=== PATIENT | male | born 1975 | race Caucasian/White ===

== ENCOUNTER 2021-05-21 02:49 | Emergency (ER) | payer OTHER, SELFPAY ==
--- NOTE | 2021-05-21 02:46 | ECG_ITS ---
APPROVED REPORT Exam: Resting ECG HR:81 bpm ECG Measurements Heart Rate 81 AXES MO 144 P 66 QRSd 94 QRS 34 QT 382 T 33 QTc 443 Conclusion Normal sinus rhythm Normal ECG Electronically signed by : Raghu Clemente, 05/21/2021 18:50:21
[2021-05-21 02:49] VITALS: BP 138/88; PULSE 82; RESP 16; TEMP 36.7; O2SAT 98; BMI 28.1
--- NOTE | 2021-05-21 02:57 | XR_ITS ---
PROCEDURE INFORMATION: Exam: XR Chest Exam date and time: 05/21/2021 2:57 AM Age: 45 years old Clinical indication: Sternal or substernal pain; Patient HX: Mid chest and epigastric pain; Additional info: Cp TECHNIQUE: Imaging protocol: XR of the chest. Views: 2 views. COMPARISON: No relevant prior studies available. FINDINGS: Lungs: No acute findings or consolidation. Pleural spaces: No pleural effusion. No pneumothorax. Heart/Mediastinum: No acute findings or cardiomegaly. Bones/joints: No acute findings. IMPRESSION: No acute cardiopulmonary findings.
[2021-05-21 03:03] VITALS: BP 126/70; PULSE 90; O2SAT 99
--- NOTE | 2021-05-21 03:06 | PC.NURSE ---
pt vomiting at this time
[2021-05-21 03:08] LABS: Blood Urea Nitrogen 14 mg/dl (9-20); Carbon Dioxide 26 mmol/L (22.0-30.0); Chloride 106 mmol/L (98-107); Creatinine Clearance Estimated 103 mL/min (50-200); Estimated Glomerular Filt Rate 73 ml/min (>60); GFR (African American) 88 ML/MIN (>60); Glucose 130 mg/dl (74-100); Sodium 143 mmol/L (136-145)
--- NOTE | 2021-05-21 03:15 | CT_ITS ---
PROCEDURE INFORMATION: Exam: CT Abdomen And Pelvis With Contrast Exam date and time: 05/21/2021 3:15 AM Age: 45 years old Clinical indication: Abdominal tenderness and vomiting; Patient HX: Epigastric pain TECHNIQUE: Imaging protocol: Computed tomography of the abdomen and pelvis with contrast. Radiation optimization: All CT scans at this facility use at least one of these dose optimization techniques: automated exposure control; mA and/or kV adjustment per patient size (includes targeted exams where dose is matched to clinical indication); or iterative reconstruction. Contrast material: ISOVUE; Contrast volume: 75 ml; Contrast route: IV; COMPARISON: CR XR CHEST 2V 05/21/2021 3:45 AM FINDINGS: Lungs: Calcified granulomata in the right lower lobe. Liver: No acute findings. No mass. Gallbladder and bile ducts: Layering hyperattenuating material in the gallbladder lumen suggestive of sludge or multiple partially calcified gallstones. No intra or extrahepatic biliary ductal dilation. Pancreas: No acute findings, focal abnormality or ductal dilation. Spleen: No splenomegaly or focal abnormality. Adrenal glands: Normal. No mass. Kidneys and ureters: No hydronephrosis. Stomach and bowel: No obstruction. No mucosal thickening. Appendix: No evidence of appendicitis. Intraperitoneal space: No free air. No free fluid. Vasculature: No abdominal aortic aneurysm. Lymph nodes: No pathologically enlarged lymph nodes. Urinary bladder: Unremarkable as visualized. Reproductive: Unremarkable as visualized. Bones/joints: No acute fracture. Soft tissues: Uncomplicated fat containing left inguinal hernia. IMPRESSION: 1. Gallbladder sludge versus multiple partially calcified gallstones without intra or extrahepatic biliary ductal dilation. Follow-up as clinically indicated. 2. Other chronic changes as described.
--- NOTE | 2021-05-21 03:18 | HMH.EDGENADL ---
ED Disposition Clinical Impression: Abdominal pain Qualifiers: Abdominal location: epigastric Qualified Code(s): R10.13 - Epigastric pain Disposition: Home, Self-Care Condition on Discharge: Good Instructions: DI for General Gallbladder Conditions Additional Instructions: see pcp for follow up and gb eval Referrals: Provider,Des, [Primary Care Provider] - Ulises Abraham MD [Staff Physician] - - Critical Care Critical Care Time: No Attestation: On 05/21/21, the high probability of a clinically significant, sudden or life threatening deterioration of the following system(s) required my full and direct attention, intervention and personal management. The time I documented below is in addition to time spent performing reported procedures but includes the following listed in this critical care notation. Medical Decision Making - Medical Records Medical records reviewed: Yes: I reviewed the patient's medical records. - [place] Inquiry Pt receiving controlled substance: No Vital Signs: 05/21/21 02:49 05/21/21 03:03 05/21/21 03:27 Temperature 98.1 F Temperature Source Oral Pulse Rate 90 81 Pulse Rate [Left Radial] 82 Respiratory Rate 16 Blood Pressure 126/70 139/94 H Blood Pressure [Right Arm] 138/88 Blood Pressure Mean [Right Arm] 104 Blood Pressure Source Automatic Cuff Automatic Cuff Blood Pressure Source [Right Arm] Automatic Cuff Blood Pressure Position Sitting Sitting Blood Pressure Position [Right Arm] Sitting 02 Sat by Pulse Oximetry 98 99 96 Oxygen Delivery Method Room Air Room Air - Lab Data Lab results reviewed: Yes: I reviewed the patient's lab results. Lab Results 05/21/21 02:50: WBC 14.4 H, RBC 5.45, Hgb 16.3, Hct 46.4, MCV 85.1, MCH 29.9, MCHC 35.1, RDW 13.2, Plt Count 225, MPV 9.1, Neut % (Auto) 73.4, Lymph % (Auto) 20.5, Haskell % (Auto) 4.3, Eos % (Auto) 1.1, Baso % (Auto) 0.7, Neut # (Auto) 10.6 H, Lymph # (Auto) 3.0, Haskell # (Auto) 0.6, Eos # (Auto) 0.2, Baso # (Auto) 0.1 05/21/21 02:50: Sodium 143, Potassium 4.0, Chloride 106, Carbon Dioxide 26, Anion Gap 15.0, BUN 14, Creatinine 1.10, Estimated Creat Clear 103, Estimated GFR 73, Est GFR ( Amer) 88, Glucose 130 H, Calcium 9.0, Troponin I < 0.01 05/21/21 02:50: ESR 8 05/21/21 02:50: C-Reactive Protein 2.6, Procalcitonin 0.046 05/21/21 02:50: Amylase 50, Lipase 185 Result diagrams: 05/21/21 02:50 05/21/21 02:50 Orders (Tests/Meds): ED MEDICATIONS Generic Name Dose Route Start Last Admin Trade Name Freq PRN Reason Stop Dose Admin Sodium Chloride 1,000 mls @ 999 mls/hr 05/21/21 03:15 05/21/21 03:16 Sod Chlor 0.9% 1000ml Bag IV 05/21/21 04:15 999 mls/hr .Q1H1M ARABELLA Administration Sodium Chloride 8 ml 05/21/21 03:10 Sodium Chloride 0.9% 10ml Vial IV 06/20/21 03:09 NEEDED PRN dilute pepcid Discontinued Medications Generic Name Dose Route Start Last Admin Trade Name Freq PRN Reason Stop Dose Admin Belladonna Alkaloids 60 ml 05/21/21 03:10 05/21/21 03:17 Gi Cocktail 60ml Udc PO 05/21/21 03:11 60 ml ONCE ONE Administration Famotidine 20 mg 05/21/21 03:10 05/21/21 03:16 Famotidine 20mg/2ml Vial IV 05/21/21 03:11 20 mg ONCE ONE Administration Iopamidol 75 ml 05/21/21 04:13 05/21/21 04:15 Iopamidol-370 (76%);100ml Bottle IV 05/21/21 04:14 75 ml ONCE ONE Administration Ketorolac Tromethamine 30 mg 05/21/21 03:15 05/21/21 03:18 Ketorolac 30mg/Ml Vial IV 05/21/21 03:16 30 mg ONCE ONE Administration Metoclopramide HCl 10 mg 05/21/21 03:10 05/21/21 03:16 Metoclopramide Hcl 10mg/2ml Vial IVP 05/21/21 03:11 10 mg ONCE ONE Administration Ondansetron HCl 4 mg 05/21/21 03:10 05/21/21 03:16 Ondansetron 4mg/2ml Vial IV 05/21/21 03:11 4 mg ONCE ONE Administration Promethazine HCl 12.5 mg 05/21/21 03:10 05/21/21 03:17 Promethazine Hcl 25mg/Ml 1ml Vial IV 05/21/21 03:11 12.5 mg ONCE ONE Administra
[2021-05-21 03:26] LABS: Troponin I < 0.01 ng/ml (0.00-0.034)
[2021-05-21 03:27] VITALS: BP 139/94; PULSE 81; O2SAT 96
[2021-05-21 03:36] LABS: Amylase 50 U/L (30-110); C-Reactive Protein 2.6 mg/L (0-4); Lipase 185 U/L (23-300)
[2021-05-21 03:37] LABS: Basophils # 0.1 K/mm3 (0-0.2); Basophils % 0.7 % (0.1-2.0); Eosinophils # 0.2 K/mm3 (0.0-0.4); Eosinophils % 1.1 % (0.1-12.0); Hematocrit 46.4 % (42.0-52.0); Hemoglobin 16.3 g/dL (14.1-18.0); Lymphocytes % 20.5 % (10-50); Mean Corpuscular HGB Conc 35.1 g/dL (31.8-35.4); Mean Corpuscular Hemoglobin 29.9 pg (27.0-31.2); Mean Corpuscular Volume 85.1 fl (80-94); Mean Platelet Volume 9.1 fl (7.4-10.4); Monocytes # 0.6 K/mm3 (0.1-1.0); Monocytes % 4.3 % (1.7-9.3); Neutrophils # 10.6 K/mm3 (1.8-7.8); Neutrophils % 73.4 % (37.0-80.0); Platelet Count 225 K/mm3 (142-424); Red Blood Count 5.45 M/mm3 (4.60-6.20); Red Cell Distribution Width 13.2 % (11.5-17.5); White Blood Count 14.4 K/mm3 (4.8-10.8)
[2021-05-21 03:49] LABS: Procalcitonin 0.046 ng/mL (0.0-2.0)
--- NOTE | 2021-05-21 03:52 | PC.NURSE ---
Pt to rad
[2021-05-21 03:57] LABS: Erythrocyte Sedimentation Rate 8 mm/hr (0-15)
[2021-05-21 06:51] VITALS: BP 139/94; PULSE 80; RESP 18; TEMP 36.7; O2SAT 96
== END 2021-05-21 06:52 | disposition home or self-care (01) ==
PROVIDERS: Emergency Provider Emergency Medicine; PCP Family Medicine
DX: R07.9 Chest pain, unspecified (principal); R10.13 Epigastric pain
CPT/HCPCS: 71046; 74177; 80048; 82150; 83690; 84145; 84484; 85025; 85651; 86140; 93005; 96365; 96375; 99282; 99283; J2405; Q9967

== ENCOUNTER → 2021-05-28 08:48 | Outpatient (CLI) | payer OTHER, SELFPAY ==
--- NOTE | 2021-05-28 08:50 | US_ITS ---
PROCEDURE: US GALLBLADDER CLINICAL INDICATION: gallstones COMPARISON: CT CT ABDOMEN PELVIS W CON from 05/21/2021 FINDINGS: Pancreas: Unremarkable/Not well seen Liver: Unremarkable. There is appropriate direction of blood flow within a non dilated portal vein. Right kidney: Unremarkable appearing. No hydronephrosis. Gallbladder: There are multiple gallstones with sludge in the gallbladder and mild gallbladder distention. No pericholecystic fluid, gallbladder wall thickening, or biliary dilatation is evident. Common bile duct is 3 mm. IMPRESSION: Mildly distended gallbladder with multiple stones and sludge. Dictated by: Antoine Roa MD 05/28/2021 12:03 Antoine Roa MD in [facility] 05/28/2021 12:03
== END ==
PROVIDERS: PCP Internal Medicine Adolescent Medicine; Visit Provider Surgery
DX: K80.20 Calculus of gallbladder without cholecystitis without obstruction (principal)
CPT/HCPCS: 76705

== ENCOUNTER → 2021-06-14 09:40 | Outpatient (CLI) | payer OTHER, SELFPAY ==
[2021-06-14 10:27] LABS: Basophils # 0.1 K/mm3 (0-0.2); Eosinophils # 0.1 K/mm3 (0.0-0.4); Eosinophils % 1.9 % (0.1-12.0); Hematocrit 46.1 % (42.0-52.0); Hemoglobin 15.7 g/dL (14.1-18.0); Lymphocytes # 2.4 K/mm3 (0.7-4.5); Lymphocytes % 32.3 % (10-50); Mean Corpuscular HGB Conc 33.9 g/dL (31.8-35.4); Mean Corpuscular Hemoglobin 29.5 pg (27.0-31.2); Mean Corpuscular Volume 86.9 fl (80-94); Mean Platelet Volume 10.9 fl (7.4-10.4); Monocytes # 0.5 K/mm3 (0.1-1.0); Monocytes % 6.4 % (1.7-9.3); Neutrophils # 4.3 K/mm3 (1.8-7.8); Neutrophils % 58.4 % (37.0-80.0); Platelet Count 229 K/mm3 (142-424); Red Blood Count 5.31 M/mm3 (4.60-6.20); White Blood Count 7.4 K/mm3 (4.8-10.8)
[2021-06-14 10:57] LABS: Chloride 104 mmol/L (98-107)
[2021-06-14 10:58] LABS: Potassium 4.3 mmoL/L (3.5-5.1); Sodium 142 mmol/L (136-145)
[2021-06-14 11:00] LABS: Alanine Aminotransferase 48 U/L (12-78); Aspartate Amino Transferase 29 U/L (17-59); Blood Urea Nitrogen 14 mg/dl (9-20); Estimated Glomerular Filt Rate 82 ml/min (>60); GFR (African American) 99 ML/MIN (>60)
[2021-06-14 11:01] LABS: Albumin Level 4.3 g/dl (3.5-5.0); Albumin/Globulin Ratio 1.5 (1.1-1.8); Alkaline Phosphatase 90 U/L (38-126); Anion Gap 13.3 mEq/L (5-15); Bilirubin,Total 0.8 mg/dl (0.2-1.3); Calcium 9.1 mg/dl (8.4-10.2); Carbon Dioxide 29 mmol/L (22.0-30.0); Globulin 2.8 g/dL (1.3-3.2); Glucose 103 mg/dl (74-100); Total Protein,Serum 7.1 g/dl (6.3-8.2)
== END ==
PROVIDERS: Visit Provider Surgery
DX: Z01.812 Encounter for preprocedural laboratory examination (principal); Z11.52 Encounter for screening for COVID-19; K80.20 Calculus of gallbladder without cholecystitis without obstruction
CPT/HCPCS: 36415; 80053; 85025; U0003

== ENCOUNTER 2021-06-15 09:31 | Day surgery (SDC) | payer OTHER, SELFPAY ==
[2021-06-09 12:02] VITALS: BMI 28.1
[2021-06-15] VITALS (18 sets, daily range): BP systolic 119–165; BP diastolic 68–82; PULSE 78–100; RESP 16–18; TEMP 36.6–43; O2SAT 92–98
--- NOTE | 2021-06-15 12:16 | P.PN_ITS ---
[facility] Anesthesia Checklist - Patient Identification Patient Identification: Arm Band - Structural Data Admitted From: Home Planned Operative Procedure/s: laparoscopic cholecystectomy Consent for Planned Operative Procedure(s) Verified: Yes Verified Documents: Surgical Consent, History and Physical - NPO Status Verified Time NPO: 00:00 - Additional verifications Anesthesia Reactions: No Hx Blood Transfusions: No Blood Transfusion Reaction: No - Airway Assessment C-Spine Mobility Assessed: Yes (mp2) TMJ Mobility Assessed: Yes Dentition: Good Dentition - Neurological Assessment Level of Consciousness: Awake, Alert - Anesthesia Plan Anesthesia Risk discussed: Yes Anesthesia Plan: Verified ASA Class: I Anesthesia Type: General [facility] History I have reviewed the patient's past medical history: Yes Medical History: Denies:: Cancer, Diabetes Mellitus Type 1, Diabetes Mellitus Type 2, Internal Pacemaker, MRSA, Seizures *Have you ever received a pneumonia vaccine?: No *Have you received a flu vaccine this season?: No Other Medical History: Denies: Blood Transfusion Reaction Anesthesia experience/problems:: nac Laterality Cases: Bilateral: Other Other Surgeries: Yes: No Previous Surgery. No: Pacemaker Amputation: No Fractures: Yes (RT HAND PINKY FINGER) - *Social History Last grade of school completed: Some college Smoking Status: Never smoker Alcohol Intake: current Alcohol Intake Frequency:: holidays/special occasions only Substance Use Type: denies use *Occupational Status:: employed Housing: house Household Members: none *Travel in the last 8 weeks: None Family Hx:: No significant family history
--- NOTE | 2021-06-15 13:15 | SUR.OPER ---
1315- family updated of pt's current status via oriana rn
--- NOTE | 2021-06-15 14:34 | HMH.ANESI ---
[facility] Anesthesia Record Part I Intake, IV Amount: 1,600 Estimated blood loss (mL): 10 Urine output (mL): 0 Blood Pressure: 129/71 SaO2: 92 Pulse Rate: 78 Respiratory Rate: 16 Temperature: 98.8 F Patient is:: Drowsy, Stable Stable to PACU at:: 14:40
--- NOTE | 2021-06-15 15:13 | P.PN_ITS ---
[facility] [place] Anesthesia Record Part II Discharge Time: 14:58 Destination: Surgical Day Care (OP Surgery) PACU nurse assessment reviewed?: Yes Patient Condition:: Good Anesthesia Complications:: None Swallowing reflex intact?: Yes Cyanosis?: No Blood Pressure: 124/71 Pulse Rate: 79 Temperature: 98.8 F Mental Status: Alert & Oriented Pain level:: 0 Nausea and/or vomitting:: None Intake, IV Amount: 0
--- NOTE | 2021-06-15 15:22 | HMH.OPNOTE ---
Date of procedure: 06/15/21 Pre-op Diagnosis:: Symptomatic gallstones Post-op Diagnosis:: Severe cholecystitis with numerous gallstones Procedure performed:: Laparoscopic cholecystectomy Surgeon:: Ulises Abraham MD DRIVER'S EDUCATION INSTRUCTOR:: Eddie Jarrell Anesthesia: GETJame Estimated blood loss (mL): 25 Clinical Note:: Patient presents for cholecystectomy. He Is a pleasant 45-year-old male referred by Dr. Raghu Clemente for evaluation gallbladder. Patient states that he has had about 3 or 4 attacks occurring over the past 6 months. He has a longstanding history of heartburn and indigestion. However recently he had a severe attack. This occurred after eating ice cream. He had very severe pain in the epigastrium and into the chest. He was seen and evaluated in the emergency department on 05/21/2021. He underwent CT scan which was suggestive of gallstones. He was managed as an outpatient and seen in Dr. Raghu Clemente's office later that day and was still quite symptomatic. He was scheduled for urgent surgical evaluation. He does state that he is feeling somewhat better but still has abdominal discomfort. At that time tentative arrangements were made for planned gallbladder surgery. I did have him undergo gallbladder ultrasound which reveals multiple gallstones and sludge with minor gallbladder wall thickening. Patient states that he has been adamantly watching his diet but has had some minor attacks of discomfort. Operative findings:: Patient had a severely inflamed gallbladder consistent with acute on chronic cholecystitis. Gallbladder was completely packed full of numerous gallstones. There was severe acute and chronic inflammatory response. Operative note:: Patient was taken to the operating room. He was given preoperative intravenous antibiotics. In the operating room he was placed in a supine position. General anesthesia was induced via endotracheal tube. Abdomen was prepped and draped in the standard surgical fashion. Subumbilical skin incision was made and while performing abdominal wall lift Veress needle was inserted. CO2 pneumoperitoneum was achieved to 15 mmHg. 11 mm optical trocar was inserted at the umbilicus. Intraperitoneal contents were visualized. The gallbladder was identified and had evidence of significant inflammation and thickening. Patient was positioned in reverse Trendelenburg left side down. A couple of 5 mm trochars were inserted in the right upper abdomen. 10 mm trocar was inserted in the epigastrium. Gallbladder was grasped retracted anteriorly and superiorly over the dome of the liver. It was markedly inflamed endings extremely thickened and tense. Infundibulum the gallbladder was grasped retracted anterior laterally. There was quite a profound inflammatory process. Dissection was carried out the neck of the gallbladder. Due to the amount of chronic inflammation with fibrosis and scarring very prolonged dissection was carried out as it was difficult to discern the anatomy. Ultimately the cystic duct was able to be identified. It was multiply clipped and sharply divided. Cystic artery was coagulated with YENI ultrasonic harmonic jeffrey and divided. Attempt was made to dissect the gallbladder free from the liver with YENI ultrasonic robotic jeffrey. However, due to the profound fibrosis and chronic inflammation this was impossible. Gallbladder was dissected free from the liver using laparoscopic electrocautery. There was some unavoidable spillage of bile and some gallstones during the dissection process. It was determined that the gallbladder was completely packed full of too numerous to count gallstones. Several gallstones were removed intermittently during the dissection process from the gallbladder itself and from the peritoneal cavity. Ultimately the gallbladder was placed within an Endo Catch retrieval device and removed from the peritoneal cavity via the umbilical trocar site which required some extension of the
--- NOTE | 2021-06-15 16:33 | SUR.PHASEII ---
1630- pt states nausea better but still feels slightly there. resting in bed voices just wants to lay still right now. vitals stable.
--- NOTE | 2021-06-15 16:49 | SUR.PHASEII ---
1650- pt states nausea much better. resting in bed, family at bedside.
--- NOTE | 2021-06-15 17:07 | SUR.PHASEII ---
1705- pt still sleeping- states just wants to lay still. VSS.
--- NOTE | 2021-06-15 17:25 | SUR.PHASEII ---
1725- pt up getting dressed. Iv dc'd at this time. pt reports no nausea. vitals stable.
== END 2021-06-15 17:42 | disposition home or self-care (01) ==
LOC: OR 09:33
PROVIDERS: PCP Internal Medicine Adolescent Medicine; Visit Provider Surgery
PROC: 0FT44ZZ Resection of Gallbladder, Percutaneous Endoscopic Approach (ICD-10-PCS; CPT 47562; principal; 2021-06-15 11:30)
DX: K80.10 Calculus of gallbladder with chronic cholecystitis without obstruction (principal)
CPT/HCPCS: 47562; 96374; J2405; J2710

== ENCOUNTER → 2021-07-14 10:17 | Outpatient (CLI) | payer OTHER, SELFPAY ==
--- NOTE | 2021-07-14 10:17 | CT_ITS ---
PROCEDURE: CT ABDOMEN PELVIS WO CON CLINICAL INDICATION: post lap cristiana COMPARISON: CT CT ABDOMEN PELVIS W CON from 05/21/2021 TECHNIQUE: Axial images obtained with sagittal and coronal reformats. All CT scans at the facility use one or more dose reduction, viz: automated exposure control, ma/kV adjustment per patient size (including targeted exams where dose is matched to indication, i.e. head), or iterative reconstruction technique. Patient refused IV contrast FINDINGS: LOWER THORAX: No acute finding ABDOMEN & PELVIS: There has been an interval cholecystectomy. There is a small area of decreased attenuation involving the right hepatic lobe anteriorly segment 5. This has developed since the previous exam measuring approximately 1.8 x 1.6 cm the. This is nonspecific and could be due to small hematoma from the previous surgery. No evidence of biloma. Surgical clips are present in the gallbladder fossa. The spleen, adrenal glands, and pancreas have an unremarkable unenhanced appearance. No renal or ureteral calculi. Unremarkable appearing appendix. There is a small left inguinal hernia containing fat. No intestinal obstruction or free air. No abnormal fluid collections. No acute bony anomalies. Postsurgical changes of the anterior abdominal wall at the umbilical region and right upper quadrant medially IMPRESSION: Somewhat limited study without IV contrast. Status post cholecystectomy. A small area of decreased attenuation is present in the right hepatic lobe anteriorly near the gallbladder fossa and could be due to small area of hepatic injury/small hematoma. Follow-up may confirm resolution. No biloma or other significant anomalies apparent. Dictated by: Antoine Roa MD 07/14/2021 18:33 Antoine Roa MD in [facility] 07/14/2021 18:33
== END ==
PROVIDERS: PCP Internal Medicine Adolescent Medicine; Visit Provider Surgery
DX: R10.9 Unspecified abdominal pain (principal)
CPT/HCPCS: 74176

== ENCOUNTER → 2022-02-23 10:56 | Outpatient (CLI) | payer OTHER, SELFPAY ==
--- NOTE | 2022-02-23 11:01 | XR_ITS ---
FINAL REPORT CLINICAL HISTORY: R UPPER QUADRANT PAIN/ABDOMINAL PAIN FINDINGS: RIGHT RIBS Two views were obtained. There is no acute fracture or dislocation. No soft tissue abnormality is identified. IMPRESSION: No acute process. Reviewed, Interpreted and Dictated by Jhonny Estevez MD Transcribed by Sylvie Romero Authenticated by Jhonny Estevez MD on 02/23/2022 01:36:49 PM [facility]
--- NOTE | 2022-02-23 11:03 | XR_ITS ---
FINAL REPORT CLINICAL HISTORY: R UPPER QUADRANT PAIN/ EPIGASTRIC PAIN/CHEST WALL PAIN FINDINGS: ABDOMEN COMPLETE INCLUDING CHEST There is a nonspecific, nonobstructive bowel gas pattern. No bowel dilation is identified. No abnormal calcification is seen. Right upper quadrant surgical clips are identified. There is a large amount of stool throughout the colon. Heart is normal in size. The mediastinum is unremarkable. The lungs are clear. There is no pneumothorax. IMPRESSION: Stool burden as above. Reviewed, Interpreted and Dictated by Jhonny Estevez MD Transcribed by Sylvie Romero Authenticated by Jhonny Estevez MD on 02/23/2022 01:36:51 PM [facility]
--- NOTE | 2022-02-23 11:04 | XR_ITS ---
FINAL REPORT CLINICAL HISTORY: RT SIDED PAIN COMPARISON: 05/21/2021 FINDINGS: TWO-VIEW CHEST The heart size is normal. The mediastinum is normal. The lungs are clear. There is no pneumothorax. IMPRESSION: No acute cardiopulmonary process. Reviewed, Interpreted and Dictated by Jhonny Estevez MD Transcribed by Sylvie Romero Authenticated by Jhonny Estevez MD on 02/23/2022 01:36:50 PM [facility]
== END ==
PROVIDERS: PCP Internal Medicine Adolescent Medicine; Visit Provider Internal Medicine Adolescent Medicine
DX: R07.89 Other chest pain (principal); R10.11 Right upper quadrant pain; R10.13 Epigastric pain
CPT/HCPCS: 71046; 71101; 74019

== ENCOUNTER → 2022-03-10 08:24 | Outpatient (CLI) | payer OTHER, SELFPAY ==
--- NOTE | 2022-03-10 08:29 | CT_ITS ---
FINAL REPORT TECHNIQUE: Pre-and postcontrast axial CT images of the abdomen and pelvis were obtained. Coronal reformatted images were also obtained and reviewed. This study was performed with techniques to keep radiation doses as low as reasonably achievable (ALARA). Individualized dose reduction techniques using automated exposure control or adjustment of mA and/or kV according to the patient's size were employed. CLINICAL HISTORY: ELEVATED PANCREATIC ENZYME, ruq pain COMPARISON: 03/08/2022 FINDINGS: On the pre infusion images, no kidney stone or obstruction is identified. The gallbladder is absent. On the post infusion images, the liver parenchyma is homogeneous. The previously questioned small area of low attenuation adjacent to the gallbladder fossa is less evident than previous now measuring approximately 1 cm in greatest dimension. This is well seen on image 35 of series 8. The spleen, pancreas, adrenals, and kidneys appear unremarkable. No peripancreatic inflammation is seen. There are scattered diverticuli noted within the sigmoid colon. The urinary bladder is unremarkable. IMPRESSION: Involuting low-attenuation focus adjacent to the gallbladder fossa is nearly completely resolved, favored to represent a small hematoma or healing hepatic injury. Reviewed, Interpreted and Dictated by Jhonny Estevez MD Transcribed by Sylvie Romero Authenticated by Jhonny Estevez MD on 03/10/2022 10:56:[address] [facility]
== END ==
PROVIDERS: PCP Internal Medicine Adolescent Medicine; Visit Provider Internal Medicine Adolescent Medicine
DX: R74.8 Abnormal levels of other serum enzymes (principal)
CPT/HCPCS: 74178; Q9967